=== PATIENT | female | born 1950 | race African-American/Black ===

== ENCOUNTER 2020-12-13 08:14 | Outpatient (CLI) | payer MEDICARE | END 2020-12-13 08:15 | disposition home or self-care (01) | LOC: PET 08:14 | PROVIDERS: ATTEND Nurse Practitioner Family | DX: R91.8 Other nonspecific abnormal finding of lung field (principal); J43.9 Emphysema, unspecified | CPT/HCPCS: 78815; A9552 ==

== ENCOUNTER 2021-03-06 09:38 | Outpatient (CLI) | payer MEDICARE | END 2021-03-06 09:39 | disposition home or self-care (01) | LOC: BICCT 09:38 | PROVIDERS: ATTEND Nurse Practitioner Family | DX: J21.9 Acute bronchiolitis, unspecified (principal); F17.200 Nicotine dependence, unspecified, uncomplicated; R91.8 Other nonspecific abnormal finding of lung field; I25.10 Atherosclerotic heart disease of native coronary artery without angina pectoris; J43.9 Emphysema, unspecified | CPT/HCPCS: 71250 ==

== ENCOUNTER 2021-07-25 09:13 | Outpatient (CLI) | payer MEDICARE ==
[2021-07-25] MEDS ORDERED: Iopamidol 370 76% 100 ML VIAL ONE (10:19)
== END 2021-07-25 09:14 | disposition home or self-care (01) ==
LOC: CT 09:13
PROVIDERS: ATTEND Internal Medicine Gastroenterology
DX: K30 Functional dyspepsia (principal); D64.9 Anemia, unspecified; I70.0 Atherosclerosis of aorta; R91.1 Solitary pulmonary nodule; Z90.710 Acquired absence of both cervix and uterus
CPT/HCPCS: 74177; 82565; Q9967

== ENCOUNTER 2022-08-06 12:13 | Outpatient (CLI) | payer MEDICARE | END 2022-08-06 12:14 | disposition home or self-care (01) | LOC: RAD 12:13 | PROVIDERS: ATTEND Internal Medicine Critical Care Medicine | DX: R06.00 Dyspnea, unspecified (principal); R91.8 Other nonspecific abnormal finding of lung field | CPT/HCPCS: 71046 ==

== ENCOUNTER 2022-09-10 10:15 | Outpatient (CLI) | payer MEDICARE, BC | END 2022-09-10 10:16 | disposition home or self-care (01) | LOC: RAD 10:15 | PROVIDERS: ATTEND Internal Medicine Critical Care Medicine | DX: R06.00 Dyspnea, unspecified (principal); R91.8 Other nonspecific abnormal finding of lung field | CPT/HCPCS: 71046 ==

== ENCOUNTER 2022-10-28 14:45 | Outpatient (CLI) | payer MEDICARE | END 2022-10-28 14:46 | disposition home or self-care (01) | LOC: BICMAMMO 14:45 | PROVIDERS: ATTEND Nurse Practitioner Family | DX: Z13.820 Encounter for screening for osteoporosis (principal); M81.0 Age-related osteoporosis without current pathological fracture; Z78.0 Asymptomatic menopausal state | CPT/HCPCS: 77080 ==

== ENCOUNTER 2024-05-24 10:52 | Outpatient (CLI) | payer MEDICARE | END 2024-05-24 10:53 | disposition home or self-care (01) | LOC: BICCT 10:52 | PROVIDERS: ATTEND Internal Medicine Critical Care Medicine | DX: R91.8 Other nonspecific abnormal finding of lung field (principal) | CPT/HCPCS: 71250 ==